=== PATIENT | female | born 1965 | race Caucasian/White ===

== ENCOUNTER 2016-12-20 10:01 | Emergency (ER) | payer OTHER ==
[2016-12-20 10:08] VITALS: BMI 35.2
--- NOTE | 2016-12-20 10:45 | PDOC ---
History of Present Illness - General History Source: Patient Exam Limitations: No Limitations - History of Present Illness Initial Comments: 12/20/16 11:45 The patient is a 51 year old female with significant past medical history of hypertension who presents to the emergency department with chest pain, cough, and vomiting for 3 days. The patient states that her chest pain has been constant for the last 3 days and she describes her pain as pressure on her chest. She reports a productive cough with white phlegm. The patient states her chest pain is worse when she coughs. She reports a sore throat. She is also complaining of suprapubic abdominal pain, nausea, and vomiting. She last vomited around 3am this morning. She denies any blood in her vomit. She reports associated diarrhea. The patient denies any dysuria, hematuria, or frequency. She states she has not been compliant with her hypertension medication for the last 3 weeks because she doesnt like the way it makes her feel. The patient states she feels like she has a fever but never took her temperature at home. The patient denies any chills or sick contacts. PMD: Dr. Juancho Terry [phone] <Michelle Fabian - Last Filed: 12/20/16 11:45> - General History Source: Patient, Old Records Exam Limitations: No Limitations <Deidra Gamez - Last Filed: 12/20/16 15:28> - General Chief Complaint: Nausea/Vomiting Stated Complaint: SOB Time Seen by Provider: 12/20/16 10:27 Past History <Michelle Fabian - Last Filed: 12/20/16 11:45> - Past Medical History HTN: Yes - Surgical History Cholecystectomy: Yes - Psycho/Social/Smoking Cessation Hx Anxiety: No Suicidal Ideation: No Smoking History: Never smoked Hx Alcohol Use: No Drug/Substance Use Hx: No Substance Use Type: None <Deidra Gamez - Last Filed: 12/20/16 15:28> - Past Medical History Allergies/Adverse Reactions: Allergies Allergy/AdvReac Type Severity Reaction Status Date / Time No Known Allergies Allergy Verified 12/20/16 10:08 Home Medications: Ambulatory Orders D-Methorphan/PE/Acetaminophen [Day Time Cold-Flu Liquid] 10 ml PO DAILY Levofloxacin [Levaquin] 500 mg PO DAILY #7 tablet 12/20/16 Review of Systems - Review of Systems Able to Perform ROS?: Yes Comments:: 12/20/16 11:46 GENERAL/CONSTITUTIONAL: No fever or chills. No weakness. HEAD, EYES, EARS, NOSE AND THROAT: +Sore throat. No change in vision. No ear pain or discharge. CARDIOVASCULAR: +Chest pain. No shortness of breath. RESPIRATORY: +Cough. No wheezing or hemoptysis. GASTROINTESTINAL: +Nausea, +vomiting, +diarrhea. No constipation. GENITOURINARY: No dysuria, frequency, or change in urination. MUSCULOSKELETAL: No joint or muscle swelling or pain. No neck or back pain. SKIN: No rash NEUROLOGIC: No headache, vertigo, loss of consciousness, or change in strength/ sensation. ENDOCRINE: No increased thirst. No abnormal weight change. HEMATOLOGIC/LYMPHATIC: No anemia, easy bleeding, or history of blood clots. ALLERGIC/IMMUNOLOGIC: No hives or skin allergy. <Michelle Fabian - Last Filed: 12/20/16 11:45> *Physical Exam - Vital Signs Last Vital Signs Temp Pulse Resp BP Pulse Ox 98.1 F 86 20 173/95 97 12/20/16 10:04 12/20/16 10:04 12/20/16 10:04 12/20/16 10:04 12/20/16 10:04 - Physical Exam Comments: 12/20/16 11:46 GENERAL: Awake, alert, and fully oriented, in no acute distress HEAD: No signs of trauma EYES: PERRLA, EOMI, sclera anicteric, conjunctiva clear ENT: +Oropharynx with mild erythema but no exudate. Auricles normal inspection , hearing grossly normal, nares patent, moist mucosa NECK: Normal ROM, supple, no lymphadenopathy, JVD, or masses LUNGS: +Weak inspiratory effort. There are questionable crackles at the right base but otherwise clear. HEART: Regular rate and rhythm, normal S1 and S2, no murmurs, rubs or gallops ABDOMEN: +Tenderness to palpation in the RUQ and LUQ with no guarding, no rebound. Soft, normoactive bowel sounds. No masses. EXTREMITIES: Normal range of motion, no edema. No clubbing or cyanosis. No cords, erythema, or tenderness NEUROLOGICAL: Cranial nerves II through XII grossly intact. Normal speech, normal gait SKIN: Warm, Dry, normal turgor, no rashes or lesions noted. <Michelle Fabian - Last Filed: 12/20/16 11:45> - Vital Signs Last Vital Signs Temp Pulse Resp BP Pulse Ox 98.1 F 86 20 173/95 97 12/20/16 10:04 12/20/16 10:04 12/20/16 10:04 12/20/16 10:04 12/20/16 10:04 <Deidra Gamez - Last Filed: 12/20/16 15:28> ED Treatment Course - LABORATORY CBC & Chemistry Diagram: 12/20/16 11:00 12/20/16 11:00 - ADDITIONAL ORDERS Additional order review: 12/20/16 11:00 RBC 4.45 MCV 86.7 MCHC 33.8 RDW 12.9 MPV 10.0 Neutrophils % 81.6 Lymphocytes % 11.7 Monocytes % 6.2 Eosinophils % 0.3 Basophils % 0.2 - Medications Given in the ED: ED Medications Discontinued Medications Generic Name Dose Route Start Last Admin Trade Name Claudioq PRN Reason Stop Dose Admin Sodium Chloride 1,000 mls @ 1,000 mls/hr 12/20/16 10:46 12/20/16 11:12 Normal Saline - IV 12/20/16 11:45 1,000 mls/hr ASDIR STA Administration <Michelle Fabian - Last Filed: 12/20/16 11:45> - LABORATORY CBC & Chemistry Diagram: 12/20/16 11:00 12/20/16 11:00 <Deidra Gamez - Last Filed: 12/20/16 15:28> Medical Decision Making - Medical Decision Making 12/20/16 11:31 51 y/o female with h/o [id number] with meds-who presents to the ED with c /o 3 day h/o pleuritic CP, cough, fever, abdominal pain, vomiting and diarrhea. DDx includes but is not limited to: influenza, PNA, AGE, colitis, gastritis, electrolyte abnormality, dehydration, toxic/metabolic derangement, ACS (less likely given her clinical presentation). Plan: 1. Labs 2. EKG--NSR at 73 bpm; nl axis, intervals and no acute ST-segment changes 3. Influenza A/B PCR 4. IVF for hydration 5. Observe and re-evaluate 12/20/16 15:26 Addendum: The labs were reviewed and are noted in the EMR. The CXR was read as ?consolidation in the LLL. I have evaluated the patient at this time and she is feeling improved. I have given the patient levaquin in the ED and have prescribed levaquin 500mg daily for the next 6 days. I have discussed all of the results as well as the treatment plan with the patient. She has been advised to follow-up with her PCP within 3 days and to RTER if Sx persist, worsen or new Sx arise. <Deidra Gamez - Last Filed: 12/20/16 15:28> *DC/Admit/Observation/Transfer - Attestations Scribe Attestion: 12/20/16 11:46 Documentation prepared by Michelle Fabian, acting as medical microbiologist for Deidra Gamez MD. <Michelle Fabian - Last Filed: 12/20/16 11:45> - Discharge Dispostion Admit: No - Attestations Physician Attestion: 12/20/16 11:34 I, Dr. Deidra Gamez, attest that the scribes documentation that appears above has been prepared under my direction and personally reviewed by me in its entirety. I confirmed that the note above accurately reflects all work, treatment, procedures, and medical decision-making performed by me. <Deidra Gamez - Last Filed: 12/20/16 15:28> Diagnosis at time of Disposition: Chest pain, Nausea and vomiting, Diarrhea, URI, acute - Discharge Dispostion Disposition: HOME Condition at time of disposition: Stable - Prescriptions Prescriptions: Levofloxacin [Levaquin] 500 mg PO DAILY #7 tablet - Referrals Referrals: Juancho Terry MD [Primary Care Provider] - - Patient Instructions Additional Instructions: You have an upper respiratory infection. The test for influenza A and B was negative. You chest X-ray showed a mild infection inthe left side of your lung. You have been prescribed levaquin and have received the first dose in the ED today. Resume taking the medication tomorrow and complete a one week course. Please follow up with your primary care physician within the next 3 days. Please retrun to the ED if your symptoms persist, worsen or new symptoms arise.
[2016-12-20] MEDS ORDERED: SODIUM CHLORIDE 1,000 ML IV STA (10:46)
[2016-12-20 11:36] LABS: BASOPHIL 0.2 % (0-2.0); EOSINOPHIL 0.3 % (0-4.5); MCH 29.3 pg (25.7-33.7); MCHC 33.8 g/dl (32.0-36.0); MEAN CELL VOLUME 86.7 fl (80-96); NEUTROPHILS 81.6 % (42.8-82.8); PLATELET COUNT 229 K/MM3 (134-434); RDW 12.9 % (11.6-15.6)
[2016-12-20 12:13] LABS: ALBUMIN 3.3 g/dl (3.4-5.0); ALK PHOS 90 U/L (45-117); ANION GAP 9 (8-16); BILIRUBIN,TOTAL 0.4 mg/dL (0.2-1.0); CALCIUM 7.9 mg/dL (8.5-10.1); CO2 26 mmol/L (21-32); CREATININE 0.9 mg/dL (0.55-1.02); GLUCOSE,RANDOM 118 mg/dL (74-106); MAGNESIUM 2.6 mg/dL (1.8-2.4); PHOSPHOROUS 2.6 mg/dL (2.5-4.9); SGOT/AST 30 U/L (15-37); SGPT/ALT 23 U/L (12-78); TOT PROT 7.8 g/dl (6.4-8.2)
[2016-12-20 13:38] LABS: URINE APPEARANCE CLEAR; URINE BILIRUBIN NEGATIVE (NEGATIVE); URINE COLOR STRAW; URINE GLUCOSE (UA) NEGATIVE (NEGATIVE); URINE KETONE TRACE (NEGATIVE); URINE LEUK ESTERASE NEGATIVE (NEGATIVE); URINE NITRITE NEGATIVE (NEGATIVE); URINE PROTEIN NEGATIVE (NEGATIVE); URINE UROBILINOGEN NEGATIVE E.U./dl (0.2-1.0)
[2016-12-20 13:54] LABS: URINE BLOOD 1+ (NEGATIVE)
[2016-12-20 14:00] LABS: GRANULAR CASTS 5 /lpf; URINE BACTERIA RARE /hpf (NONE SEEN); URINE HYALINE CAST 5 /lpf; URINE MUCUS RARE; URINE RBC 1 /hpf (0-3); URINE WBC 1 /hpf (3-5)
[2016-12-20] MEDS ORDERED: LEVOFLOXACIN 500 MG TABLET (FP) PO SCH (14:45)
[2016-12-20 14:49] LABS: TROPONIN I < 0.02 ng/ml (0.00-0.05)
--- NOTE | 2016-12-20 14:53 | EKG ---
Test Reason : Blood Pressure : / mmHG Vent. Rate : 073 BPM Atrial Rate : 073 BPM P-R Int : 162 ms QRS Dur : 082 ms QT Int : 404 ms P-R-T Axes : 072 025 023 degrees QTc Int : 445 ms NORMAL SINUS RHYTHM CANNOT RULE OUT ANTERIOR INFARCT , AGE UNDETERMINED ABNORMAL ECG NO PREVIOUS ECGS AVAILABLE Confirmed by MAMADOU SANTOS MD ([id number]) on 12/20/2016 2:53:00 PM Referred By: Confirmed By:MAMADOU SANTOS MD
[2016-12-20] MEDS ORDERED: LEVOFLOXACIN 500 MG TABLET (FP) ONE (15:10)
[2016-12-20 15:29] VITALS: BP 124/70; PULSE 68; TEMP 98.8
== END 2016-12-20 15:39 | disposition home or self-care (01) ==
LOC: JER 10:01
PROC: 3E0337Z Introduction of Electrolytic and Water Balance Substance into Peripheral Vein, Percutaneous Approach (ICD-10-PCS; principal; 2016-12-20)
DX: J11.1 Influenza due to unidentified influenza virus with other respiratory manifestations (principal); R19.7 Diarrhea, unspecified; R07.89 Other chest pain
CPT/HCPCS: 36415; 71020-TC; 80053; 81003; 81015; 82550; 82553; 83690; 83735; 84100; 84484; 85025; 87804; 93005; 93010; 96360; 99284-25